=== PATIENT | female | born 1990 | race Asian ===

== ENCOUNTER 2016-04-14 13:03 | Inpatient (IN) | payer BC ==
[~2016-04-14] VITALS: Ht 162.6 cm; Wt 64.0 kg
[2016-04-14] MEDS ORDERED: LOPERAMIDE HCL 2 MG CAPSULE PO PRN (16:45)
[2016-04-14] MEDS ORDERED: ACETAMINOPHEN 325 MG TABLET PO PRN (16:45)
[2016-04-14] MEDS ORDERED: MAGNESIUM HYDROXIDE SUSPENSION 30 ML UDCUP PO PRN (16:45)
[2016-04-14] MEDS ORDERED: LORazepam 2 MG TABLET PO PRN (16:45)
[2016-04-14] MEDS ORDERED: ZOLPIDEM TARTRATE 10 MG TABLET PO PRN (16:45)
[2016-04-14] MEDS ORDERED: MAG HYDROX/AL HYDROX/SIMETH ES 30 ML SUSPENSION UDCUP PO PRN (16:45)
[2016-04-14] MEDS ORDERED: OLANZapine 5 MG RAPDIS TABLET PO PRN (16:45)
[2016-04-14 17:30] LABS: APPEARANCE,URINE CLOUDY (CLEAR); GLUCOSE, URINE (UA) NEGATIVE (NEGATIVE); KETONES,URINE >=80 mg/dL (NEGATIVE); LEUKOCYTE ESTERASE ,URINE SMALL (NEGATIVE); OCCULT BLOOD,URINE TRACE (NEGATIVE); PROTEIN,URINE TRACE (NEGATIVE)
[2016-04-14] MEDS ORDERED: DiphenhydrAMINE HCL 50 MG/ML VIAL IM ONE (17:30)
[2016-04-14] MEDS ORDERED: LORazepam 2 MG/ML VIAL IM ONE (17:30)
[2016-04-14] MEDS ORDERED: HALOPERIDOL LACTATE 5 MG/ML VIAL IM ONE (17:30)
[2016-04-14 17:57] LABS: ADD UA MICROSCOPIC YES
[2016-04-14 17:59] LABS: SQUAMOUS EPITHELIAL CELL,UR Moderate /LPF (None Seen)
[2016-04-14 18:00] LABS: ANION GAP 15 mmol/L (8-16); CALCIUM, TOTAL 8.5 mg/dL (8.8-10.5); CARBON DIOXIDE 22 mmol/L (22-29); CHLORIDE 101 mmol/L (98-107); CREATININE 0.93 mg/dL (0.60-1.30); GLOMERULAR FILTR. RATE CALC > 60 mL/min (>60); POTASSIUM 3.1 mmol/L (3.5-5.1); SODIUM SERUM 138 mmol/L (136-145); UREA NITROGEN, BLOOD 13 mg/dL (7-18)
[2016-04-14 18:02] LABS: BASOPHILS % (AUTO) 0.4 % (0.0-2.0); EOSINOPHILS % (AUTO) 0 % (1.0-6.0); HEMATOCRIT 36.7 % (36-46); HEMOGLOBIN 12.3 g/dL (12.0-16.0); LYMPHOCYTES % (AUTO) 8.2 % (22.0-44.0); MEAN CORPUSCULAR HEMOGLOBIN 28.7 pg (26.0-34.0); MEAN CORPUSCULAR HGB CONC 33.4 G/dL (31.0-37.0); MEAN CORPUSCULAR VOLUME 86 fL (80-100); MONOCYTES # (AUTO) 0.7 K/uL (0.1-1.0); NEUTROPHILS # (AUTO) 10.6 K/uL (1.8-7.7); PLATELET COUNT (AUTO) 661 K/uL (150-450); RED BLOOD CELL COUNT(AUTO) 4.28 MIL/uL (4.00-5.20); RED CELL DISTRIBUTION WIDTH 12.7 % (11.5-14.5); WHITE BLOOD COUNT (AUTO) 12.5 K/uL (4.5-11.0)
[2016-04-14 18:03] LABS: CALCIUM OXALATE CRYSTALS,UR Few /LPF (None Seen)
[2016-04-14 18:06] LABS: NEUTROPHILS % (AUTO) 85.4 % (40.0-70.0)
[2016-04-14 18:12] LABS: ALANINE AMINOTRANSFERASE 15 U/L (12-78); ALBUMIN 3.7 g/dL (3.4-5.0); ASPARTATE AMINOTRANSFERASE 15 U/L (15-37); BILIRUBIN,TOTAL 0.5 mg/dL (0.1-1.0); TOTAL PROTEIN, SERUM 8.1 g/dL (6.4-8.2)
[2016-04-14 19:08] VITALS: BP 119/74
[2016-04-14] MEDS: POTASSIUM CHLORIDE 20 MEQ ER TABLET PO ONE ×2 (19:43→19:55)
[2016-04-14] MEDS: OLANZapine 5 MG RAPDIS TABLET PO SCH (21:00)
[2016-04-15 08:00] VITALS: BP 155/90
[2016-04-15] MEDS: CIPROFLOXACIN HCL 500 MG TABLET PO SCH ×2 (11:48→17:08)
[2016-04-15 18:36] VITALS: BP 152/99
[2016-04-15] MEDS: OLANZapine 5 MG RAPDIS TABLET PO SCH (21:35)
[2016-04-16 06:34] VITALS: BP 137/97
[2016-04-16 08:00] VITALS: BP 128/80
[2016-04-16] MEDS: CIPROFLOXACIN HCL 500 MG TABLET PO SCH (09:46)
[2016-04-16] MEDS ORDERED: OLAN10TA3 PO (15:13)
[2016-04-16] MEDS ORDERED: CIPR-278 PO (15:15)
== END 2016-04-16 15:30 | disposition home or self-care (01) | DRG 885 ==
LOC: EEVIPCON 13:04 → EMS 13:04 → 3EC 17:30
PROVIDERS: ADMIT Psychiatry & Neurology Psychiatry; ATTEND Psychiatry & Neurology Psychiatry
DX: F20.0 Paranoid schizophrenia (principal); N39.0 Urinary tract infection, site not specified; F41.9 Anxiety disorder, unspecified; E87.6 Hypokalemia; F10.10 Alcohol abuse, uncomplicated; F19.10 Other psychoactive substance abuse, uncomplicated; Z71.41 Alcohol abuse counseling and surveillance of alcoholic; Z91.19 Patient's noncompliance with other medical treatment and regimen; Z78.1 Physical restraint status; Z71.51 Drug abuse counseling and surveillance of drug abuser
CPT/HCPCS: 87086; 96372; 99285; G0480; J1200; J1630; J2060